=== PATIENT | female | born 1970 | race Caucasian/White ===

== ENCOUNTER 2017-11-14 03:07 | Observation (INO) | payer BC ==
[~2017-11-14] VITALS: Ht 160 cm; Wt 68.0 kg
[~2017-11-14 03:07] MED LIST: ALPR-411 PO; BUSP5TAB59 PO; CITA40TA12 PO; MELO15TA3 PO; MULTTAB58 PO; OMEP20TA14 PO
[2017-11-14 05:09] VITALS: BP 129/83; PULSE 65; TEMP 37.1; O2SAT 96; Ht 160 cm; Wt 68.0 kg
[2017-11-14 05:30] VITALS: BP 129/83; PULSE 65; TEMP 37.1; O2SAT 96
[2017-11-14] MEDS ORDERED: ACETAMINOPHEN 325 MG TAB PO PRN (06:00)
[2017-11-14] MEDS ORDERED: DULO60CA44 PO (06:00)
[2017-11-14] MEDS ORDERED: TRAMADOL HCL 50 MG TAB PO PRN (06:00)
[2017-11-14] MEDS ORDERED: KETOROLAC TROMETHAMINE 15 MG/ML VIAL IV. PRN (06:00)
[2017-11-14] MEDS ORDERED: PROCHLORPERAZINE INJ 5 MG in SYRINGE 4 ML IV PRN (06:00)
[2017-11-14] MEDS ORDERED: DSY/150 PO (06:01)
[2017-11-14] MEDS ORDERED: ADAL40KI SQ (06:02)
[2017-11-14] MEDS ORDERED: CIPR1TAB10 PO (06:03)
[2017-11-14] MEDS ORDERED: LORA-741 PO (06:05)
[2017-11-14] MEDS ORDERED: LURA40TA PO (06:06)
[2017-11-14] MEDS ORDERED: METR-163 PO (06:07)
[2017-11-14] MEDS ORDERED: ROPI1TAB PO (06:08)
[2017-11-14] MEDS ORDERED: IV FLUIDS COMPLETED PRN (06:30)
[2017-11-14] MEDS ORDERED: MoRPHine SULFATE 2 MG/ML CARP IV PRN (06:45)
[2017-11-14] MEDS ORDERED: LORAZEPAM 0.5 MG TAB PO PRN (06:45)
[2017-11-14] MEDS ORDERED: NICOTINE 7 MG/24 HR TDSY TD PRN (06:45)
[2017-11-14 06:48] LABS: BASO % 0.4 %; BASO ABS # 0.03 K/uL (0-0.2); EOS % 3.3 %; EOS ABS # 0.28 K/uL (0-0.5); HEMATOCRIT 36.4 % (37-47); HEMOGLOBIN 12.5 g/dL (12.0-16.0); IG# 0.09 K/uL (0.00-0.02); LYMPH % 35.9 %; LYMPH ABS # 3.07 K/uL (1.2-3.4); MEAN CELL VOLUME 90.1 fL (80-100); MEAN CORPUSCULAR HEMOGLOBIN 30.9 pg (25-34); MEAN CORPUSCULAR HGB CONC 34.3 g/dl (32-36); MEAN PLATELET VOLUME 8.6 fL (7.4-10.4); MONO % 11.1 %; MONO ABS # 0.95 K/uL (0.11-0.59); NEUT % 48.2 %; NEUT ABS # 4.12 K/uL (1.4-6.5); PLATELET COUNT 290 K/uL (130-400); RED CELL DISTRIBUTION WIDTH CV 13.9 % (11.5-14.5); RED CELL DISTRIBUTION WIDTH SD 45.8 fL (36.4-46.3); WHITE BLOOD COUNT 8.54 K/uL (4.8-10.8)
--- NOTE | 2017-11-14 06:58 | DIAGNOSTIC IMAGING REPORT ---
ABDOMEN 2VIEW W/PA CHEST RTN CLINICAL HISTORY: 47 years-old Female presenting with abd pain, follow-up study. TECHNIQUE: PA view of the chest and supine and upright views of the abdomen were obtained. COMPARISON: None. FINDINGS: Cardiomediastinal silhouette normal. Lungs and pleural spaces clear. Nonobstructive bowel gas pattern. No gross pneumoperitoneum. Surgical clips project over the left hypochondrium and epigastrium, where multiple anastomotic suture lines are evident. Excreted contrast noted in the renal collecting systems and bladder. Additional surgical clips noted in the pelvis. Pelvic phleboliths evident. Evaluation for renal or ureteral calculi is limited in the setting of excreted contrast.. Osseous structures normal. IMPRESSION: 1. No acute cardiopulmonary disease. 2. No radiographic evidence of acute intra-abdominal pathology. 3. Given the clinical indication for follow-up, if prior exams or clinical history become available an addendum can be issued. Electronically signed by: Cody Mckeon M.D. 11/14/2017 6:57 AM Dictated Date/Time: 11/14/2017 6:54 AM
[2017-11-14 07:17] LABS: PTT PATIENT 26.4 SECONDS (21.0-31.0)
[2017-11-14 07:20] VITALS: BP 109/75; PULSE 63; TEMP 37.1; O2SAT 96
[2017-11-14 07:22] LABS: ALBUMIN 2.9 gm/dl (3.4-5.0); CALCIUM 8.7 mg/dl (8.5-10.1); CREATININE 0.72 mg/dl (0.60-1.20); POTASSIUM 3.8 mmol/L (3.5-5.1)
[2017-11-14] MEDS: MULTIVITAMIN TAB PO SCH (09:00)
[2017-11-14] MEDS ORDERED: LURASIDONE HCL 40 MG TAB PO SCH (09:00)
[2017-11-14] MEDS ORDERED: DULOXETINE HCL 60 MG CAP PO SCH ×2 (09:00→16:00)
[2017-11-14] MEDS: LACTATED RINGER'S 1000ML 1,000 ML IV SCH ×2 (09:31→20:22)
[2017-11-14] MEDS: ENOXAPARIN 30 MG/0.3 ML SYR SQ SCH (10:10)
[2017-11-14] MEDS ORDERED: NURSING VERBAL MED ORDER ONE ×3 (10:15→20:45)
--- NOTE | 2017-11-14 11:00 | HISTORY & PHYSICAL EXAMINATION ---
DATE OF ADMISSION: 11/14/2017 PRIMARY CARE PHYSICIAN: Dr. Koenig. CHIEF COMPLAINT: Abdominal pain. HISTORY OF PRESENT ILLNESS: History obtained from patient and records. Medical history significant for IBS, constipation predominant, history of hypercoagulable state (DVT status post anticoagulation. Factor V Leiden mutation) fibromyalgia, anxiety, mood disorder, past alcohol abuse, ongoing tobacco abuse. hx gastric bypass. ankylosing spondylitis on Humira. Last week, patient had achy upper abdominal pain, nausea, vomiting symptoms, loose stools, nonbloody. No unusual weight loss. Patient admitted at [facility]. CT abdomen and pelvis showed persistent dilated small bowel loops with air fluid associated partial obstruction, colonic gas increased which argues against obstruction as per report. As per patient, she was told she was being treated for infection with Cipro and Flagyl. Inflammatory bowel disease may need to be ruled out as per patient. Patient signed out against medical advice due a school Emergency. Patient had a follow up with PCP's office. An outpatient x-ray done at the office showed nonobstructive bowel gas pattern. Incidental pulmonary nodule on left upper lobe. Outpatient CT chest recommended. PCP concerned about colitis. Outpatient colonoscopy was to be scheduled as per patient. [facility] wanted some additional stool studies prior to colonoscopy. Patient's on and off achy upper abdominal pain with diarrhea symptoms worsened yesterday. About 10 bowel movements, nonbloody. Bilious emesis. Patient returned to [facility] ER. Repeat CT abdomen and pelvis showed partial SBO versus ileus. Lipase noted to be 700. Stool C. diff was negative. Patient requested to be transferred to [facility] to be [facility]. MEDICAL HISTORY: As above. An EGD September 2014 showed normal esophagus, no strictures gastric bypass with normal pouch intact staple line. SURGERIES: She has had bariatric surgery, hysterectomy, and tonsillectomy. HOME MEDICATIONS: Include Latuda, Humira, duloxetine, ropinirole, trazodone, multivitamins. ALLERGIES: No known drug allergies. FAMILY HISTORY: No known history of IBD, although her brother had GI issues, PERSONAL AND SOCIAL HISTORY: Half pack daily, past alcohol abuse, last drink was about 2 weeks ago though. Disabled. REVIEW OF SYSTEMS: As per HPI, all 10 systems reviewed, all other ROS negative. PHYSICAL EXAMINATION: VITAL SIGNS: Blood pressure was noted 129/80, ME 65 , RR 18, T 37 O2 98 room air. GENERAL: Noted to be slightly uncomfortable, no respiratory distress. SKIN: Normal color, warm. HEENT: [place] palpebral conjunctivae. No ptosis. Dry mucosa. NECK: Supple, nontender. LUNGS: Decreased breath sounds. No tenderness. HEART: Regular rate and rhythm, no murmur. ABDOMEN: Some distention, minimal epigastric tenderness. EXTREMITIES: No edema, no gross deformities, no tenderness NEUROLOGIC: Coherent, no gross focality. LABS: Labs from [facility] dated 11/13/2017: Hemoglobin noted to be 13.5, hematocrit 40, white cells 4, platelets 258. Sodium 140, potassium 3.9, chloride 107, CO2 36, BUN 3, creatinine 0.9, glucose 109. Lipase was 701 stool C. diff was negative. UA: Nitrite negative. CT abdomen and pelvis at [place] [facility] as per Chest and abdomen x-ray showed no acute pathology (11/14/17) ASSESSMENT: 1. Abdominal pain, vomiting, diarrhea of one week duration likely gastroenteritis no sepsis. Patient concerned about possible inflammatory bowel disease in the context of her ankylosing spondylitis ongoing Imuran Rx 2. Hyperlipasemia ? Pancreatitis ? Underlying gallbladder disease ? Secondary to emesis, dehydration 3. hx fibromyalgia as per records 4. History of bariatric surgery 5. Mood disorder stable on meds 6. Past history DVT, factor V Leiden mutation status post Coumadin 7. Past history EtOH abuse 8. Incidental finding of pulmonary nodule on recent outpatient imaging 9. ongoing tobacco abuse PLAN: Observation [facility] supportive management for gastroenteritis. Additional stool workup as outlined by [facility]. Follow lipase, IVF, bowel rest for now Consider GB ultrasound if lipase still elevated to rule out gallbladder disease as etio of possible pancreatitis GI consult, abdominal pain, diarrhea as per the patient's request. (Patient known to G.) Patient scheduled for outpatient CT of the chest for SPN. Nicotine patch transdermal subQ. DVT prophylaxis, Lovenox subQ. Full code. MTDD
[2017-11-14] MEDS ORDERED: SODIUM CHLORIDE 0.9% 1000ML 1,000 ML IV SCH (11:30)
--- NOTE | 2017-11-14 14:34 | Progress Note ---
Medicine Progress Note Date & Time of Visit: Nov 14, 2017 at 14:13. Subjective Pt was seen and examined Lying in bed with no distress Pt said that abdominal pain is improved Pt said that she has not been eating much She said that she is so hungry She said that her abdominal pain located across her mid abdomen Denies any chest pain, palpitation, dizziness and SOB Objective Last 8 Hrs Date Time Temp Pulse Resp B/P (MAP) Pulse Ox O2 Delivery O2 Flow Rate FiO2 11/14/17 08:00 Room Air 11/14/17 07:20 37.1 63 16 109/75 (86) 96 Room Air Physical Exam: General- No acute distress Head- atraumatic Eyes- PERRL, EOMI ENT- oropharynx clear Neck- supple, no JVD Lungs- clear to auscultation Heart- regular rhythm; no murmur Abdomen- normal bowel sounds, soft, mild tenderness on palpitation Extremities- no pretibial edema, no calf tenderness Neuro- alert, oriented x 3; PERRL, EOMI Laboratory Results: Last 24 Hours Test 11/14/17 06:36 White Blood Count 8.54 K/uL Red Blood Count 4.04 M/uL Hemoglobin 12.5 g/dL Hematocrit 36.4 % Mean Corpuscular Volume 90.1 fL Mean Corpuscular Hemoglobin 30.9 pg Mean Corpuscular Hemoglobin Concent 34.3 g/dl Platelet Count 290 K/uL Mean Platelet Volume 8.6 fL Neutrophils (%) (Auto) 48.2 % Lymphocytes (%) (Auto) 35.9 % Monocytes (%) (Auto) 11.1 % Eosinophils (%) (Auto) 3.3 % Basophils (%) (Auto) 0.4 % Neutrophils # (Auto) 4.12 K/uL Lymphocytes # (Auto) 3.07 K/uL Monocytes # (Auto) 0.95 K/uL Eosinophils # (Auto) 0.28 K/uL Basophils # (Auto) 0.03 K/uL RDW Standard Deviation 45.8 fL RDW Coefficient of Variation 13.9 % Immature Granulocyte % (Auto) 1.1 % Immature Granulocyte # (Auto) 0.09 K/uL Prothrombin Time 10.4 SECONDS Prothromb Time International Ratio 1.0 Activated Partial Thromboplast Time 26.4 SECONDS Partial Thromboplastin Ratio 1.0 Sodium Level 142 mmol/L Potassium Level 3.8 mmol/L Chloride Level 108 mmol/L Carbon Dioxide Level 27 mmol/L Anion Gap 7.0 mmol/L Blood Urea Nitrogen 3 mg/dl Creatinine 0.72 mg/dl Est Creatinine Clear Calc Drug Dose 90.4 ml/min Estimated GFR () 116.4 Estimated GFR (Non- 100.4 BUN/Creatinine Ratio 3.7 Random Glucose 87 mg/dl Calcium Level 8.7 mg/dl Magnesium Level 2.2 mg/dl Total Bilirubin 0.4 mg/dl Aspartate Amino Transf (AST/SGOT) 17 U/L Alanine Aminotransferase (ALT/SGPT) 19 U/L Alkaline Phosphatase 57 U/L Total Protein 6.0 gm/dl Albumin 2.9 gm/dl Globulin 3.1 gm/dl Albumin/Globulin Ratio 0.9 Lipase 509 U/L Thyroid Stimulating Hormone (TSH) 6.140 uIu/ml Date/Time Source Procedure Growth Status 11/14/17 07:15 Stool Shiga Toxin Test Pending Ordered 11/14/17 07:15 Stool Stool Culture Pending Ordered Assessment & Plan Abdominal pain associated with diarrhea Possible related to gastroenteritis had 10 episodes of diarrhea yesterday, not none today CXR showed no radiographic evidence of acute intra-abdominal pathology. Lipase mildly elevated Tolerated full liquid diet, will advance diet Received IVF gastro on bard Pt already arranged for outpatient colonoscopy to r/o IBD Hx fibromyalgia Stable Tobacco abuse Counselling on smoking cessation Ankylosing spondylitis On Humura therapy DVT px on lovenox CODE STATUS FULL CODE Consultants: Gastro Current Inpatient Medications: Current Inpatient Medications Medications (Trade) Dose Ordered Sig/Tushar Route Start Time Stop Time Status Last Admin Dose Admin Acetaminophen (Tylenol Tab) 650 mg Q4H PRN PO 11/14/17 06:00 12/14/17 05:59 Prochlorperazine Edisylate 5 mg/ Syringe 5 ml @ 5 mls/min Q6H PRN IV 11/14/17 06:00 12/14/17 05:59 Tramadol HCl (Ultram Tab) not relieved ... Q6H PRN PO 11/14/17 06:00 12/14/17 05:59 Ketorolac Tromethamine (Toradol Inj) 15 mg Q6H PRN IV. 11/14/17 06:00 11/19/17 05:59 Lactated Ringer's 1,000 ml @ 75 mls/hr [id number] IV 11/14/17 06:00 12/14/17 05:59 11/14/17 09:31 75 MLS/HR Enoxaparin Sodium (Lovenox Inj) 30 mg DAILY SQ 11/14/17 09:00 12/14/17 08:59 11/14/17 10:10 30 MG Miscellaneous (Iv Fluids Completed) 1 ea PRN PRN N/A 11/14/17 06:30 11/14/18 06:29 Lorazepam (Ativan Tab) 0.5 mg TID PRN PO 11/14/17 06:45 12/14/17 06:44 Lurasidone HCl (Latuda Tab) 40 mg DAILY PO 11/14/17 09:00 12/14/17 08:59 Multivitamins (Multivitamin Tab) 1 tab DAILY PO 11/14/17 09:00 12/14/17 08:59 Ropinirole HCl (Requip Tab) 1 mg HS PO 11/14/17 21:00 12/14/17 20:59 Morphine Sulfate (MoRPHine SULFATE INJ) 2 mg Q8H PRN IV 11/14/17 06:45 11/28/17 06:44 Nicotine (Nicoderm Cq 7 Mg Patch) 1 patch QAM PRN TD 11/14/17 06:45 12/14/17 06:44 Miscellaneous (Remove Nicoderm Patch) 1 ea HS N/A 11/14/17 21:00 12/14/17 20:59 Duloxetine HCl (Cymbalta Cap) 60 mg DAILY@1600 PO 11/14/17 16:00 12/14/17 08:59 Trazodone HCl (Desyrel Tab) 150 mg HS PO 11/14/17 21:00 12/14/17 20:59
[2017-11-14 15:14] VITALS: BP 108/72; PULSE 60; TEMP 37.3; O2SAT 96
--- NOTE | 2017-11-14 15:40 | GASTROINTESTINAL CONSULTATION ---
DATE OF CONSULTATION: 11/14/2017 RACE: . ATTENDING PHYSICIAN: Dr. Thakur. CONSULTING PHYSICIAN: Dr. Britt. REASON FOR CONSULTATION: Abdominal pain. HISTORY OF PRESENT ILLNESS: Radha aTng is a 47-year-old female with a significant past medical history including IBS, constipation predominant as well as fibromyalgia, anxiety and opiate and alcohol abuse who actively sees pain management as an outpatient. She was seen at [facility] prior to her arrival here and had a CT scan of her abdomen and pelvis which showed dilated small bowel loops and air fluid levels with associated partial small-bowel obstruction. She was treated with IV antibiotics and was scheduled to see [facility] as an outpatient. She stated that she returned to [facility] after having approximately 10 nonbloody bowel movements and had a repeat CT scan which showed a partial small-bowel obstruction versus an ileus and subsequently requested transfer to [facility] where she was transferred last evening. Upon arrival here, she did have a chest and abdomen x-ray which showed no acute cardiopulmonary disease. Laboratory studies upon her arrival showed a H&H of 12.5 and 36.4. Her white blood cell count was 8.54. Her total protein was 6.0, albumin was 2.9, total bilirubin 0.4, AST 17, ALT 19, alkaline phosphatase was 57. Her lipase level was 509. She had stool studies ordered and they are pending. She states that she does have a negative C. diff that was checked at [place], though I do not have this record as of this time. She states that she is scheduled to undergo colonoscopy with Dr. Mcneill sometime next week. At the time that I saw the patient, she states that her abdominal pain is throughout her abdomen and points to both bilateral upper quadrants as well as mid lower abdomen. She describes her pain currently is 4-5/10 in intensity, radiating to her back. She states that it is constant with no exacerbating factors though alleviated with narcotic analgesics. She denies any hematemesis, melena or hematochezia. She has not had a bowel movement since her arrival here and states that she has never undergone a colonoscopy in the past. PAST MEDICAL HISTORY: Significant for IBS, constipation predominant, hypercoagulable state, history of DVT, history of anticoagulation therapy, fibromyalgia, anxiety, mood disorder, opiate abuse, and alcohol abuse. PAST SURGICAL HISTORY: None. ALLERGIES: No known drug allergies. MEDICATIONS: At present include Requip 1 mg p.o. at bedtime, nicotine patch, Desyrel 150 mg p.o. at bedtime, Cymbalta 60 mg p.o. daily, Lovenox 30 mg subQ daily, Latuda 40 mg p.o. daily, multivitamin 1 tab p.o. daily, Ativan 0.5 mg p.o. t.i.d. p.r.n. anxiety, morphine 2 mg IV q. 8 p.r.n. pain, Tylenol 650 mg p.o. q. 4 hours p.r.n. pain, Phenergan 5 mg IV q. 6 p.r.n. nausea or vomiting, Ultram p.o. q. 6 p.r.n. pain, and Toradol 50 mg IV q. 6 p.r.n. pain. SOCIAL HISTORY: She smokes a half pack of cigarettes a day. She is a former alcoholic, though denies any alcohol use at this point stating that her last drink was approximately 2 weeks ago. She is on disability. FAMILY HISTORY: Negative for GI malignancy or inflammatory bowel disease. REVIEW OF SYSTEMS: Negative x12 system review other than pertinent positives listed in the HPI. PHYSICAL EXAMINATION: VITAL SIGNS: Temp of 37.1, pulse 63, respirations 16, blood pressure 109/75, and pulse ox 96% on room air. GENERAL: She is awake, cooperative, in no acute distress. HEAD: Normocephalic, atraumatic. EYES: Pupils equal, round. Extraocular muscles are intact. ENT: External evaluation of ears and nose are normal. Oropharynx is clear. NECK: Soft, supple. CHEST: Clear to auscultation bilaterally. CARDIOVASCULAR SYSTEM: Regular rate and rhythm. ABDOMEN: Soft, tender in the bilateral upper quadrants, nondistended. Positive bowel sounds. There is no hepatosplenomegaly or stigmata of chronic liver disease. EXTREMITIES: No clubbing, cyanosis, or edema. SKIN: Soft, pink. Good turgor. LABORATORY STUDIES AND RADIOGRAPHIC STUDIES: Reviewed in the HPI. IMPRESSION: A 47-year-old female with a history of irritable bowel syndrome with constipation as well as fibromyalgia and anxiety, presenting with abdominal pain. PLAN: I would recommend that the patient undergo an abdominal series tomorrow to ensure that her partial small-bowel obstruction versus ileus is improving. I would recommend continuing supportive care and I would limit the use of narcotic analgesics in this patient as she does see pain management and the use of narcotic analgesics in a patient with an ileus is relatively contraindicated due to decreased GI motility and risk of worsening ileus formation. I would treat her supportively. I would advance her diet as tolerated. If she does well with diet and her abdominal series returns well tomorrow, she can follow up as an outpatient with [facility] as she is scheduled with Dr. Mcneill. Once again, thanks for allowing me to participate in the care of this patient. If you have any further questions, please do not hesitate in contacting me.
[2017-11-14] MEDS ORDERED: ROPINIROLE HCL 1 MG TAB PO SCH (21:00)
[2017-11-14] MEDS ORDERED: TRAZODONE HCL 50 MG TAB PO SCH (21:00)
[2017-11-14 23:20] VITALS: BP 99/63; TEMP 36.7; O2SAT 95
[2017-11-15 05:58] LABS: BASO % 0.6 %; BASO ABS # 0.05 K/uL (0-0.2); EOS % 3.4 %; EOS ABS # 0.29 K/uL (0-0.5); HEMATOCRIT 36.8 % (37-47); HEMOGLOBIN 12.6 g/dL (12.0-16.0); IG# 0.09 K/uL (0.00-0.02); LYMPH % 29.6 %; LYMPH ABS # 2.55 K/uL (1.2-3.4); MEAN CELL VOLUME 89.8 fL (80-100); MEAN CORPUSCULAR HEMOGLOBIN 30.7 pg (25-34); MEAN CORPUSCULAR HGB CONC 34.2 g/dl (32-36); MEAN PLATELET VOLUME 8.8 fL (7.4-10.4); MONO % 7.1 %; MONO ABS # 0.61 K/uL (0.11-0.59); NEUT % 58.3 %; NEUT ABS # 5.02 K/uL (1.4-6.5); PLATELET COUNT 291 K/uL (130-400); RED CELL DISTRIBUTION WIDTH CV 14.2 % (11.5-14.5); RED CELL DISTRIBUTION WIDTH SD 46.6 fL (36.4-46.3); WHITE BLOOD COUNT 8.61 K/uL (4.8-10.8)
[2017-11-15 07:10] VITALS: BP 100/68; PULSE 80; TEMP 37.1; O2SAT 91
[2017-11-15] MEDS: MULTIVITAMIN TAB PO SCH (09:00)
[2017-11-15] MEDS: ENOXAPARIN 30 MG/0.3 ML SYR SQ SCH (09:04)
[2017-11-15] MEDS ORDERED: NURSING VERBAL MED ORDER ONE (09:15)
--- NOTE | 2017-11-15 10:07 | DIAGNOSTIC IMAGING REPORT ---
PA CHEST WITH ABDOMINAL SERIES CLINICAL HISTORY: Generalized abdominal pain. FINDINGS: A PA chest radiograph is compared to study dated 11/14/2017. The cardiomediastinal silhouette is unremarkable. Chronic interstitial thickening is similar to previous. No airspace consolidation or large pleural effusion is identified. No pneumothorax is seen. The bony thorax is grossly intact. Supine and erect abdominal radiographs are compared to abdominal radiographs and abdominal CT dated 11/14/2017. There is a nonobstructed abdominal bowel gas pattern. No evidence of intraperitoneal free air is seen. Scattered air-fluid levels are seen throughout the colon. Surgical clips and suture material are seen in the left upper quadrant. Surgical clips are also noted in the right pelvis. There are no abnormal abdominal calcifications. The lumbosacral spine and bony pelvis appear intact. IMPRESSION: 1. No active disease in the chest. 2. Nonobstructed abdominal bowel gas pattern. 3. Scattered air-fluid levels are noted throughout the colon. Correlate clinically for evidence of a diarrheal illness. Electronically signed by: Charles Dougherty M.D. 11/15/2017 10:06 AM Dictated Date/Time: 11/15/2017 10:04 AM
[2017-11-15 11:39] VITALS: BP 100/68; PULSE 80; TEMP 37.1; O2SAT 91
--- NOTE | 2017-11-15 11:52 | Progress Note ---
Medicine Progress Note Date & Time of Visit: Nov 15, 2017 at 11:45. Subjective Pt was seen and examined Lying in bed with no distress Pt said that she feels fine she said that her abdominal pain improved significantly Pt said that she tolerated diet Denies any chest pain, palpitation and SOB Objective Last 8 Hrs Date Time Temp Pulse Resp B/P (MAP) Pulse Ox O2 Delivery O2 Flow Rate FiO2 11/15/17 11:39 37.1 80 16 91 Room Air 11/15/17 07:30 Room Air 11/15/17 07:10 37.1 80 16 100/68 (79) 91 Room Air Physical Exam: General- No acute distress Head- atraumatic Eyes- PERRL, EOMI ENT- oropharynx clear Neck- supple, no JVD Lungs- clear to auscultation Heart- regular rhythm; no murmur Abdomen- normal bowel sounds, soft, mild tenderness on palpitation Extremities- no pretibial edema, no calf tenderness Neuro- alert, oriented x 3; PERRL, EOMI Laboratory Results: Last 24 Hours Test 11/15/17 05:26 White Blood Count 8.61 K/uL Red Blood Count 4.10 M/uL Hemoglobin 12.6 g/dL Hematocrit 36.8 % Mean Corpuscular Volume 89.8 fL Mean Corpuscular Hemoglobin 30.7 pg Mean Corpuscular Hemoglobin Concent 34.2 g/dl Platelet Count 291 K/uL Mean Platelet Volume 8.8 fL Neutrophils (%) (Auto) 58.3 % Lymphocytes (%) (Auto) 29.6 % Monocytes (%) (Auto) 7.1 % Eosinophils (%) (Auto) 3.4 % Basophils (%) (Auto) 0.6 % Neutrophils # (Auto) 5.02 K/uL Lymphocytes # (Auto) 2.55 K/uL Monocytes # (Auto) 0.61 K/uL Eosinophils # (Auto) 0.29 K/uL Basophils # (Auto) 0.05 K/uL RDW Standard Deviation 46.6 fL RDW Coefficient of Variation 14.2 % Immature Granulocyte % (Auto) 1.0 % Immature Granulocyte # (Auto) 0.09 K/uL Assessment & Plan Abdominal pain associated with diarrhea Possible related to gastroenteritis had 10 episodes of diarrhea yesterday, not none today CXR showed no radiographic evidence of acute intra-abdominal pathology. Lipase mildly elevated Tolerated full liquid diet, will advance diet Received IVF gastro on bard Pt already arranged for outpatient colonoscopy to r/o IBD 3/4 Clinically improved No significant pain Tolerated diet well Abd xray showed no active disease in the chest and nonobstructed abdominal bowel gas pattern. Will call GI to schedule appointment for her upcoming colonoscopy Stable Hx fibromyalgia Stable Tobacco abuse Counselling on smoking cessation Ankylosing spondylitis On Humura therapy DVT px on lovenox CODE STATUS FULL CODE Disposition Discharge home today Consultants: Gastro Current Inpatient Medications: Current Inpatient Medications Medications (Trade) Dose Ordered Sig/Tushar Route Start Time Stop Time Status Last Admin Dose Admin Acetaminophen (Tylenol Tab) 650 mg Q4H PRN PO 11/14/17 06:00 12/14/17 05:59 Prochlorperazine Edisylate 5 mg/ Syringe 5 ml @ 5 mls/min Q6H PRN IV 11/14/17 06:00 12/14/17 05:59 Tramadol HCl (Ultram Tab) not relieved ... Q6H PRN PO 11/14/17 06:00 12/14/17 05:59 Ketorolac Tromethamine (Toradol Inj) 15 mg Q6H PRN IV. 11/14/17 06:00 11/19/17 05:59 11/14/17 14:56 15 MG Enoxaparin Sodium (Lovenox Inj) 30 mg DAILY SQ 11/14/17 09:00 12/14/17 08:59 11/15/17 09:04 30 MG Miscellaneous (Iv Fluids Completed) 1 ea PRN PRN N/A 11/14/17 06:30 11/14/18 06:29 Lorazepam (Ativan Tab) 0.5 mg TID PRN PO 11/14/17 06:45 12/14/17 06:44 11/14/17 18:34 0.5 MG Multivitamins (Multivitamin Tab) 1 tab DAILY PO 11/14/17 09:00 12/14/17 08:59 Ropinirole HCl (Requip Tab) 1 mg HS PO 11/14/17 21:00 12/14/17 20:59 11/14/17 20:13 1 MG Morphine Sulfate (MoRPHine SULFATE INJ) 2 mg Q8H PRN IV 11/14/17 06:45 11/28/17 06:44 Nicotine (Nicoderm Cq 7 Mg Patch) 1 patch QAM PRN TD 11/14/17 06:45 12/14/17 06:44 Miscellaneous (Remove Nicoderm Patch) 1 ea HS N/A 11/14/17 21:00 12/14/17 20:59 11/14/17 20:15 1 EA Duloxetine HCl (Cymbalta Cap) 60 mg DAILY@1600 PO 11/14/17 16:00 12/14/17 08:59 11/14/17 16:42 60 MG Trazodone HCl (Desyrel Tab) 150 mg HS PO 11/14/17 21:00 12/14/17 20:59 11/14/17 20:13 150 MG Lurasidone HCl (Latuda Tab) 40 mg DAILY@1730 PO 11/15/17 17:30 12/14/17 08:59
--- NOTE | 2017-11-15 11:59 | Discharge Instructions ---
Discharge Instructions Date of Service Nov 15, 2017. Admission Reason for Admission: Abdominal Pain Discharge Discharge Diagnosis / Problem: Adomminal pain/Diarrhea Discharge Goals Goal(s): Decrease discomfort, Improve function, Improve disease control Activity Recommendations Activity Limitations: resume your previous activity (as tolerated) . Instructions / Follow-Up Instructions / Follow-Up Follow up with your primary care provider dr. Koenig on 11/24 @ 11:25am Please Contact Gastro to schedule for your Colonoscopy Advanced diet as tolerated Current Hospital Diet Patient's current hospital diet: Low Fiber Diet Discharge Diet Recommended Diet: Low Fiber Diet Pending Studies Studies pending at discharge: no Medical Emergencies . Who to Call and When: Medical Emergencies: If at any time you feel your situation is an emergency, please call 911 immediately. . Non-Emergent Contact Non-Emergency issues call your: Primary Care Provider Call Non-Emergent contact if: you have a fever, your pain is worsening, you have any medication questions . . "Provider Documentation" section prepared by Indra Mitchell. .
[2017-11-15] MEDS ORDERED: LURASIDONE HCL 40 MG TAB PO SCH (17:30)
--- NOTE | 2017-11-16 08:24 | Discharge Summary ---
Discharge Summary Date of Service Nov 16, 2017. Discharge Summary Admission Date: Nov 14, 2017 at 05:13 Discharge Date: Nov 15, 2017 Discharge Disposition: Home Principal Diagnosis: Abdominal pain associated with diarrhea Secondary Diagnoses/Problems: Hx fibromyalgia Ankylosing spondylitis Tobacco Abuse Procedures: [~ rep ct add3]] PA CHEST WITH ABDOMINAL SERIES CLINICAL HISTORY: Generalized abdominal pain. FINDINGS: A PA chest radiograph is compared to study dated 11/14/2017. The cardiomediastinal silhouette is unremarkable. Chronic interstitial thickening is similar to previous. No airspace consolidation or large pleural effusion is identified. No pneumothorax is seen. The bony thorax is grossly intact. Supine and erect abdominal radiographs are compared to abdominal radiographs and abdominal CT dated 11/14/2017. There is a nonobstructed abdominal bowel gas pattern. No evidence of intraperitoneal free air is seen. Scattered air-fluid levels are seen throughout the colon. Surgical clips and suture material are seen in the left upper quadrant. Surgical clips are also noted in the right pelvis. There are no abnormal abdominal calcifications. The lumbosacral spine and bony pelvis appear intact. IMPRESSION: 1. No active disease in the chest. 2. Nonobstructed abdominal bowel gas pattern. 3. Scattered air-fluid levels are noted throughout the colon. Correlate clinically for evidence of a diarrheal illness. Electronically signed by: Charles Dougherty M.D. 11/15/2017 10:06 AM Dictated Date/Time: 11/15/2017 10:04 AM Consultations: Gastro Medication Reconciliation Continued Medications: Adalimumab (Humira Pen) 40 Mg/0.8 Ml Kit 40 MG SQ [id number] Duloxetine Hcl (Cymbalta) 60 Mg Cap 60 MG PO DAILY, CAP Lorazepam (Ativan) 0.5 Mg Tab 0.5 MG PO TID PRN for ABD CRAMPS, TAB Lurasidone Hcl (Latuda) 40 Mg Tab 40 MG PO DAILY, TAB Multiple Vitamin (Multivitamin) 1 Tab Tab 1 TAB PO DAILY, TAB Ropinirole (Requip) 1 Mg Tab 1 MG PO HS, TAB TAKE WITH FOOD. Trazodone HCl (Trazodone HCl) 150 Mg Tab 150 MG PO HS Discontinued Medications: Ciprofloxacin Hcl (Cipro) 500 Mg Tab 500 MG PO BID for 7 Days, #14 TAB FINISH ON 11/18/17. Metronidazole (Flagyl) 500 Mg Tab 500 MG PO TID for 7 Days, #21 TAB FINISH ON 11/18/17. Admission Information HPI (per Admitting provider): CHIEF COMPLAINT: Abdominal pain. HISTORY OF PRESENT ILLNESS: History obtained from patient and records. Medical history significant for IBS, constipation predominant, history of hypercoagulable state (DVT status post anticoagulation. Factor V Leiden mutation) fibromyalgia, anxiety, mood disorder, past alcohol abuse, ongoing tobacco abuse. hx gastric bypass. ankylosing spondylitis on Humira. Last week, patient had achy upper abdominal pain, nausea, vomiting symptoms, loose stools, nonbloody. No unusual weight loss. Patient admitted at [facility]. CT abdomen and pelvis showed persistent dilated small bowel loops with air fluid associated partial obstruction, colonic gas increased which argues against obstruction as per report. As per patient, she was told she was being treated for infection with Cipro and Flagyl. Inflammatory bowel disease may need to be ruled out as per patient. Patient signed out against medical advice due a school Emergency. Patient had a follow up with PCP's office. An outpatient x-ray done at the office showed nonobstructive bowel gas pattern. Incidental pulmonary nodule on left upper lobe. Outpatient CT chest recommended. PCP concerned about colitis. Outpatient colonoscopy was to be scheduled as per patient. [facility] wanted some additional stool studies prior to colonoscopy. Patient's on and off achy upper abdominal pain with diarrhea symptoms worsened yesterday. About 10 bowel movements, nonbloody. Bilious emesis. Patient returned to [facility] ER. Repeat CT abdomen and pelvis showed partial SBO versus ileus. Lipase noted to be 700. Stool C. diff was negative. Patient requested to be transferred to [facility] Physical Exam (per Admitting): PHYSICAL EXAMINATION: VITAL SIGNS: Blood pressure was noted 129/80, RI 65 , RR 18, T 37 O2 98 room air. GENERAL: Noted to be slightly uncomfortable, no respiratory distress. SKIN: Normal color, warm. HEENT: Aquilla palpebral conjunctivae. No ptosis. Dry mucosa. NECK: Supple, nontender. LUNGS: Decreased breath sounds. No tenderness. HEART: Regular rate and rhythm, no murmur. ABDOMEN: Some distention, minimal epigastric tenderness. EXTREMITIES: No edema, no gross deformities, no tenderness NEUROLOGIC: Coherent, no gross focality. Hospital Course Abdominal pain associated with diarrhea Possible related to gastroenteritis had 10 episodes of diarrhea yesterday, not none today CXR showed no radiographic evidence of acute intra-abdominal pathology. Lipase mildly elevated Tolerated full liquid diet, will advance diet Received IVF gastro on bard Pt already arranged for outpatient colonoscopy to r/o IBD 3/4 Clinically improved No significant pain Tolerated diet well Abd xray showed no active disease in the chest and nonobstructed abdominal bowel gas pattern. Will call GI to schedule appointment for her upcoming colonoscopy Stable Hx fibromyalgia Stable Tobacco abuse Counselling on smoking cessation Ankylosing spondylitis On Humura therapy DVT px on lovenox CODE STATUS FULL CODE Disposition Discharge home today Total time spent on discharge = 35 minutes This includes examination of the patient, discharge planning, medication reconciliation, and communication with other providers. Discharge Instructions Discharge Instructions Date of Service Nov 15, 2017. Admission Reason for Admission: Abdominal Pain Discharge Discharge Diagnosis / Problem: Adomminal pain/Diarrhea Discharge Goals Goal(s): Decrease discomfort, Improve function, Improve disease control Activity Recommendations Activity Limitations: resume your previous activity (as tolerated) . Instructions / Follow-Up Instructions / Follow-Up Follow up with your primary care provider dr. Koenig on 11/24 @ 11:25am Please Contact Gastro to schedule for your Colonoscopy Advanced diet as tolerated Current Hospital Diet Patient's current hospital diet: Low Fiber Diet Discharge Diet Recommended Diet: Low Fiber Diet Pending Studies Studies pending at discharge: no Medical Emergencies . Who to Call and When: Medical Emergencies: If at any time you feel your situation is an emergency, please call 911 immediately. . Non-Emergent Contact Non-Emergency issues call your: Primary Care Provider Call Non-Emergent contact if: you have a fever, your pain is worsening, you have any medication questions . . "Provider Documentation" section prepared by Indra Mitchell. . Additional Copies To Roc Koenig M.D.(WILMA)
== END 2017-11-15 12:18 | disposition home or self-care (01) ==
LOC: C.3E 05:13 → INTOOBSV 05:13
PROVIDERS: ADMIT Internal Medicine; ATTEND Internal Medicine
DX: R10.9 Unspecified abdominal pain (principal); R11.10 Vomiting, unspecified; R19.7 Diarrhea, unspecified; F10.10 Alcohol abuse, uncomplicated; F11.10 Opioid abuse, uncomplicated; E78.5 Hyperlipidemia, unspecified; M45.9 Ankylosing spondylitis of unspecified sites in spine; D68.51 Activated protein C resistance; F39 Unspecified mood [affective] disorder; M79.7 Fibromyalgia; F41.9 Anxiety disorder, unspecified; F17.210 Nicotine dependence, cigarettes, uncomplicated; Z98.84 Bariatric surgery status; Z79.899 Other long term (current) drug therapy; Z86.718 Personal history of other venous thrombosis and embolism